=== PATIENT | female | born 1995 | race Caucasian/White ===

== ENCOUNTER 2020-06-11 00:55 | Emergency (ER) | payer MEDICAID ==
[~2020-06-11] VITALS: Ht 165.1 cm; Wt 90.3 kg
--- NOTE | 2020-06-11 01:32 | NUR ---
PT WHEELED BACK TO ROOM 24 AND PLACED IN ROOM, AND ON CR MONITOR. PT HAS DIFFICULTY AMBULATING RELATED TO SEVERE PAIN (8/10) ON POSTERIOR PORTION OF LEFT KNEE. NO DISCOLORATION NOTED. PT STATES SHE STARTED A NEW CONTROL PILL RECENTLY, AND HER FAMILY IS WORRIED SHE MAY HAVE BLOOD CLOTS. PT A&OX4, NO ACUTE DISTRESS. CHEST PAIN FROM INITIAL COMPLAINT IS A 4/10 AT THIS TIME, AND BETTER. PT REMAINS HYPERTENSIVE, AND RELATES THAT SHE BELIEVES IT IS STRESS/ANXIETY RELATED. MD TO BEDSIDE TO ASSES AND EVAL PT, AND ORDERS RECEIVED. PT PLACED IN POSITION OF COMFORT, WITH SIDERAILS UP X2 AND CALL LIGHT WITHIN REACH.
[2020-06-11 01:50] LABS: BASOPHILS % (AUTO) 0 % (0-1); EOSINOPHILS % (AUTO) 3 % (1-7); LYMPHOCYTES % (AUTO) 32 % (22-44); MEAN CORPUSCULAR HEMOGLOBIN 28.4 pg (27.0-34.8); MEAN CORPUSCULAR HGB CONC 33.8 g/dL (32.4-35.8); MONOCYTES % (AUTO) 7 % (2-9); NEUTROPHILS % (AUTO) 59 % (42-75); PLATELET COUNT 420 x10^3/uL (130-400); RED BLOOD COUNT 4.84 x10^6/uL (3.82-5.3); RED CELL DISTRIBUTION WIDTH 14.7 % (9.6-15.2)
[2020-06-11 01:57] LABS: MD NO
[2020-06-11 02:00] LABS: ANION GAP 7 mmol/L (5-15); CALCIUM 8.5 mg/dL (8.5-10.1); CHLORIDE 109 mmol/L (98-107)
[2020-06-11 02:07] LABS: TROPONIN I < 0.015 ng/mL (0.000-0.045)
--- NOTE | 2020-06-11 02:34 | NUR ---
Patient sleeping with no complaints. Awaiting US results.
[2020-06-11] MEDS ORDERED: OMNIPAQUE 350 MG/ML, 100ML BOTTLE ONE (03:00)
--- NOTE | 2020-06-11 03:28 | NUR ---
Ddimer elevated. CTA ordered. IV established.
[2020-06-11 04:53] VITALS: BP 139/86
--- NOTE | 2020-06-11 05:17 | NUR ---
Discharge instructions given. All questions and concerns addressed. Patient uncomfortable ambulating. Wheeled out in wheelchair. Belongings with patient.
== END 2020-06-11 05:19 | disposition home or self-care (01) ==
LOC: ED 03:41
DX: R07.89 Other chest pain (principal); M79.605 Pain in left leg; I10 Essential (primary) hypertension; M25.562 Pain in left knee
CPT/HCPCS: 36415; 71275; 80048; 82040; 84484; 84703; 85025; 85379; 93005; 93971; 99285; Q9967